=== PATIENT | female | born 1950 | race Hispanic/Latino ===

== ENCOUNTER 2017-05-26 14:46 | Emergency (ER) | payer MEDICARE ==
[2017-05-26] MEDS ORDERED: IOHEXOL IV ONE (23:08)
--- NOTE | 2017-05-26 23:08 | Emergency Department Report ---
ED General Adult HPI - General Chief complaint: Tube Replacement Stated complaint: G-TUBE PULLED Time Seen by Provider: 05/26/17 22:56 Source: family Mode of arrival: Ambulatory Limitations: Language Barrier, Physical Limitation - History of Present Illness Initial comments: Patient is a 66-year-old female past medical history of medical or morbidities and intellectual deficiency G-tube dependent. Who presents with dislodged G- tube. Patient's history is limited due to patient's medical condition. History obtained by patient's stuffed casing tier. Patient pulled her G-tube around 11 AM and came here to get it replaced back. She receives medications and feedings through the G-tube. - Related Data Allergies Allergy/AdvReac Type Severity Reaction Status Date / Time Sulfa (Sulfonamide Allergy Angioedema Verified 05/26/17 15:09 Antibiotics) ED Review of Systems ROS: Stated complaint: G-TUBE PULLED Other details as noted in HPI Comment: Unobtainable due to pts medical conditions ED Past Medical Hx - Past Medical History Previous Medical History?: Yes - Surgical History Past Surgical History?: Yes Additional Surgical History: G TUBE - Social History Smoking Status: Never Smoker Substance Use Type: None ED Physical Exam - General Limitations: Language Barrier, Physical Limitation General appearance: alert, in no apparent distress - Head Head exam: Present: atraumatic, normocephalic - Eye Eye exam: Present: normal appearance - Respiratory Respiratory exam: Present: normal lung sounds bilaterally. Absent: respiratory distress - Cardiovascular Cardiovascular Exam: Present: regular rate, normal rhythm. Absent: systolic murmur, diastolic murmur, rubs, gallop - GI/Abdominal GI/Abdominal exam: Present: soft, other (dislodged g-tube) - Neurological Exam Neurological exam: Present: other (intellectual deficiency nonverbal) - Psychiatric Psychiatric exam: Present: other (nonverbal) - Skin Skin exam: Present: warm, dry, intact, normal color. Absent: rash ED Course Vital Signs 05/26/17 15:10 Temperature 98.5 F Pulse Rate 86 Respiratory 16 Rate Blood Pressure 91/75 O2 Sat by Pulse 100 Oximetry - Feeding Tube Replacement Reason for Replacement: fell out Initial Tube Inserted: greater than 4 weeks Type of Tube: jejunostomy Use of Tube: medications and feeding Insertion Site Prior to Procedure: clean Tube Used for Reinsertion: JAMARCUS Sen[place]alese Tube Size (F): 18 Balloon Size (mls): 10 Verification of Placement: KUB, gastrograffin injection Tube Secured by: tape/dressing Patient Tolerated Procedure: no complications ED Medical Decision Making - Radiology Data Radiology results: report reviewed, image reviewed Gastrotomy tube placement study: Shows G-tube at tip of the stomach contrasts moving into the stomach. - Medical Decision Making Chief medical therapy diagnosis: G-tube dislodgment Differential medical diagnosis: G-tube obstruction, closed stoma I will replace patient's G-tube with an 18 Senegalese G feeding tube. I will also get a G-tube study. Entire procedure well I will send patient back to her care facility contrast injected and confirmed by radiologist. Critical care attestation.: If time is entered above; I have spent that time in minutes in the direct care of this critically ill patient, excluding procedure time. ED Disposition Clinical Impression: Gastrostomy tube dysfunction, Gastrojejunostomy tube dislodgement Disposition: TO HOME OR SELFCARE Is pt being admited?: No Does the pt Need Aspirin: No Condition: Stable Instructions: How to Use and Care for Your PEG Tube (ED) Referrals: EZEQUIEL GOMEZ MD [Primary Care Provider] - 3-5 Days
--- NOTE | 2017-05-27 00:39 | XRay Report ---
FINAL REPORT EXAM: XR G-TUBE STUDY HISTORY: replacement of g tube TECHNIQUE: Supine AP view of the abdomen after injection of radiopaque contrast into a G-tube.. PRIORS: None. FINDINGS: There is contrast in the stomach, duodenum and proximal jejunum. G-tube tip is in the distal stomach. There is no evidence of contrast extravasation. There are multiple gas distended loops of bowel in the left abdomen most likely colon. There is a relatively large amount of stool in the right colon. The bowel gas pattern appears normal. The bones are unremarkable. IMPRESSION: G-tube tip in stomach. Possible constipation or colonic ileus.
[2017-05-27 06:11] VITALS: BP 105/68
== END 2017-05-27 01:20 | disposition home or self-care (01) ==
LOC: ED 14:46
DX: K94.23 Gastrostomy malfunction (principal); Z88.2 Allergy status to sulfonamides
CPT/HCPCS: 74000; Q9963

== ENCOUNTER 2017-09-08 11:24 | Outpatient (CLI) | payer MEDICARE ==
--- NOTE | 2017-09-08 14:19 | XRay Report ---
Right femur: Evaluation for hardware placement. The patient has a hip nail with the shaft component extending into the distal femur. There is new bone formation around the femoral neck with good alignment of the intratrochanteric fracture as well as the hip nail. The femoral component is well-positioned and stabilize distally with a screw. Compared with the operative exam on July 22, 2017 the hip nail and bony alignment appears unchanged.
== END 2017-09-08 11:25 | disposition home or self-care (01) ==
LOC: XRAY 11:24
PROVIDERS: ATTEND Orthopaedic Surgery
DX: S72.141D Displaced intertrochanteric fracture of right femur, subsequent encounter for closed fracture with routine healing (principal); X58.XXXD Exposure to other specified factors, subsequent encounter

== ENCOUNTER 2018-01-09 10:46 | Emergency (ER) | payer MEDICARE ==
[2018-01-09 19:50] VITALS: BP 112/45
--- NOTE | 2018-01-09 20:38 | Emergency Department Report ---
ED Abdominal Pain HPI - General Chief Complaint: Medical Clearance Stated Complaint: G TUBE LEAKING Time Seen by Provider: 01/09/18 20:08 Source: RN/ (KITCHEN HELPER) Mode of arrival: Wheelchair Limitations: Altered Mental Status - History of Present Illness Initial Comments: 67-year-old female with a past medical history of dementia, mental retardation and osteoporosis presents to the hospital with G-tube dysfunction. Patient resides in a senior living. Piece Work Inspector states that the tubing has been leaking since yesterday. Patient does not take anything by mouth intakes all feeds including medications via PEG tube. She has not had anything via PEG today due to leakage. She presents with a G-tube that is 18 Monegasque with tape around the mid tubing at area of leakage. Patient appears to be in no acute distress. Patient is nonverbal and therefore history of present illness obtained from audiology technician. Severity scale (0 -10): 0 - Related Data Home Medications Medication Instructions Recorded Confirmed Last Taken Alendronate Sodium 70 mg FEEDTUBE QWEEK 07/21/17 07/21/17 Unknown Jevity 1.2 Adrian Liquid 1.5 bottle FEEDTUBE TID 07/21/17 07/21/17 Unknown Ketoconazole 2% 1 applicator TP BID 07/21/17 07/21/17 Unknown Loratadine 10 ml PO DAILY 07/21/17 07/21/17 Unknown Nystatin [Nystop Powder] 1 applicator BID 07/21/17 07/21/17 Unknown Silace 10 ml NGTUBE DAILY 07/21/17 07/21/17 Unknown Previous Rx's Medication Instructions Recorded Last Taken Type Acetaminophen [Tylenol Extra 500 mg FEEDTUBE Q6H PRN #30 tablet 07/23/17 Unknown Rx Strength] Levofloxacin [Levaquin TAB] 500 mg PO QDAY #7 day 07/23/17 Unknown Rx Oxycodone HCl/Acetaminophen 1 each PO Q6HR PRN #30 tablet 07/23/17 Unknown Rx [Percocet 10/325 mg] Allergies Allergy/AdvReac Type Severity Reaction Status Date / Time barium sulfate Allergy Unknown Verified 07/21/17 04:03 Sulfa (Sulfonamide Allergy Angioedema Verified 07/20/17 10:44 Antibiotics) ED Review of Systems ROS: Stated complaint: G TUBE LEAKING Other details as noted in HPI Comment: Unobtainable due to pts medical conditions ED Past Medical Hx - Past Medical History Hx Hypertension: No Hx Liver Disease: No Hx Renal Disease: No Hx Dementia: Yes Additional medical history: MR, osteoporosis - Surgical History Additional Surgical History: G TUBE - Social History Smoking Status: Never Smoker Substance Use Type: None - Medications Home Medications: Home Medications Medication Instructions Recorded Confirmed Last Taken Type Alendronate Sodium 70 mg FEEDTUBE QWEEK 07/21/17 07/21/17 Unknown History Jevity 1.2 Adrian Liquid 1.5 bottle FEEDTUBE TID 07/21/17 07/21/17 Unknown History Ketoconazole 2% 1 applicator TP BID 07/21/17 07/21/17 Unknown History Loratadine 10 ml PO DAILY 07/21/17 07/21/17 Unknown History Nystatin [Nystop Powder] 1 applicator BID 07/21/17 07/21/17 Unknown History Silace 10 ml NGTUBE DAILY 07/21/17 07/21/17 Unknown History Acetaminophen [Tylenol Extra 500 mg FEEDTUBE Q6H PRN #30 tablet 07/23/17 Unknown Rx Strength] Levofloxacin [Levaquin TAB] 500 mg PO QDAY #7 day 07/23/17 Unknown Rx Oxycodone HCl/Acetaminophen 1 each PO Q6HR PRN #30 tablet 07/23/17 Unknown Rx [Percocet 10/325 mg] ED Physical Exam - General Limitations: Altered Mental Status - Other Other exam information: General: No limitations, patient is alert in no acute distress Head exam: Atraumatic, normocephalic Eyes exam: Normal appearance, pupils equal reactive to light, extraocular movements intact ENT: Moist mucous membrane, normal oropharynx Neck exam: Normal inspection, full range of motion, no meningismus nontender Respiratory exam: Clear to auscultation bilateral, no wheezes, rales, crackles Cardiovascular: Normal rate and rhythm Abdomen: Soft, nondistended, left upper quadrants and 18 Monegasque G-tube noted with tape around leaking tube site Extremity: Full range of motion normal inspection no deformity Back: Normal Inspection, full range of motion, no tenderness Neurologic: Alert Psychiatric: normal affect, normal mood Skin: Warm, dry, intact ED Course Vital Signs 01/09/18 01/09/18 01/09/18 11:01 19:49 21:41 Temperature 98 F 98.0 F Pulse Rate 64 65 Respiratory 16 18 18 Rate Blood Pressure 128/103 Blood Pressure 112/45 [Right] O2 Sat by Pulse 98 99 100 Oximetry - Consultations Consultation #1: 01/10/18 00:11 case d/w DR Patel general surgeon, in agreement if pt is asymptomatic no further workup needed of incidental findings on axr - Procedure Description Procedures done: 18 Monegasque G-tube placed by myself. Indwelling gastrostomy tube was removed after deflation of balloon. New tube was placed without difficulty. Balloon inflated with 7 mL of normal saline ED Medical Decision Making - Lab Data Result diagrams: 01/09/18 20:42 01/09/18 20:42 Lab Results 01/09/18 01/09/18 Range/Units 20:42 20:42 WBC 8.2 (4.5-11.0) K/mm3 RBC 3.98 (3.65-5.03) M/mm3 Hgb 12.0 (10.1-14.3) gm/dl Hct 37.0 (30.3-42.9) % MCV 93 (79-97) fl MCH 30 (28-32) pg MCHC 33 (30-34) % RDW 16.0 H (13.2-15.2) % Plt Count 294 (140-440) K/mm3 Lymph % (Auto) 34.8 (13.4-35.0) % Haines % (Auto) 7.1 (0.0-7.3) % Eos % (Auto) 0.5 (0.0-4.3) % Baso % (Auto) 0.4 (0.0-1.8) % Lymph # 2.9 (1.2-5.4) K/mm3 Haines # 0.6 (0.0-0.8) K/mm3 Eos # 0.0 (0.0-0.4) K/mm3 Baso # 0.0 (0.0-0.1) K/mm3 Seg Neutrophils % 57.2 (40.0-70.0) % Seg Neutrophils # 4.7 (1.8-7.7) K/mm3 Sodium 144 (137-145) mmol/L Potassium 3.7 (3.6-5.0) mmol/L Chloride 102.6 (98-107) mmol/L Carbon Dioxide 28 (22-30) mmol/L Anion Gap 17 mmol/L BUN 19 H (7-17) mg/dL Creatinine 0.5 L (0.7-1.2) mg/dL Estimated GFR > 60 ml/min BUN/Creatinine Ratio 38 % Glucose 68 (65-100) mg/dL Calcium 9.2 (8.4-10.2) mg/dL - Radiology Data Radiology results: report reviewed G tube study FINDINGS: There is a percutaneous gastrostomy tube. The tube is in the stomach. There contrast in the tube, stomach and small bowel. There is no evidence of obstruction or leakage. There is diffuse gaseous distension of the bowel suggesting generalized ileus. There is no free air. IMPRESSION: G tube appears to be in proper position and intact. - Medical Decision Making Caretakers do not report any vomiting or abdominal discomfort. Patient is asymptomatic and without distress in the ED with normal blood work and vital signs. She was discharged home since G-tube study confirms adequate placement of 18 Monegasque G-tube - Differential Diagnosis G-tube dysfunction Critical Care Time: No Critical care attestation.: If time is entered above; I have spent that time in minutes in the direct care of this critically ill patient, excluding procedure time. ED Disposition Clinical Impression: Gastrostomy tube dysfunction, Mental retardation Disposition: DC-01 TO HOME OR SELFCARE Is pt being admited?: No Condition: Stable Instructions: How to Use and Care for Your PEG Tube (ED) Additional Instructions: Follow-up with your doctor. Return is symptoms worsen. Referrals: PRIMARY CARE, [Primary Care Provider] - 3-5 Days Time of Disposition: 00:14
[2018-01-09] MEDS ORDERED: NACL 0.9% 1000 ML 1,000 ML IV ONE (20:39)
[2018-01-09 21:00] LABS: Basophils % (Auto) 0.4 % (0.0-1.8); Eosinophils % (Auto) 0.5 % (0.0-4.3); Lymphocytes # (Auto) 2.9 K/mm3 (1.2-5.4); Lymphocytes % (Auto) 34.8 % (13.4-35.0); Mean Corpuscular HGB Conc 33 % (30-34); Mean Corpuscular Hemoglobin 30 pg (28-32); Mean Corpuscular Volume 93 fl (79-97); Monocytes # (Auto) 0.6 K/mm3 (0.0-0.8); Monocytes % (Auto) 7.1 % (0.0-7.3); Platelet Count 294 K/mm3 (140-440); Red Blood Count 3.98 M/mm3 (3.65-5.03)
[2018-01-09] MEDS ORDERED: D5/0.45NS 500 ML IV SCH (21:00)
[2018-01-09 21:16] LABS: BUN/Creatinine Ratio 38; Blood Urea Nitrogen 19 mg/dL (7-17); Calcium 9.2 mg/dL (8.4-10.2); Hemolysis Index 0
--- NOTE | 2018-01-09 23:35 | XRay Report ---
FINAL REPORT PROCEDURE: XR G-TUBE STUDY TECHNIQUE: Abdominal radiograph, single supine AP view. HISTORY: s/p g tube replacement COMPARISON: No prior studies are available for comparison. FINDINGS: There is a percutaneous gastrostomy tube. The tube is in the stomach. There contrast in the tube, stomach and small bowel. There is no evidence of obstruction or leakage. There is diffuse gaseous distension of the bowel suggesting generalized ileus. There is no free air. IMPRESSION: G tube appears to be in proper position and intact.
== END 2018-01-10 02:00 | disposition home or self-care (01) ==
LOC: ED 10:46
DX: K94.23 Gastrostomy malfunction (principal); F03.90 Unspecified dementia, unspecified severity, without behavioral disturbance, psychotic disturbance, mood disturbance, and anxiety; Z88.2 Allergy status to sulfonamides; Z88.8 Allergy status to other drugs, medicaments and biological substances
CPT/HCPCS: 36415; 43760; 74018; 80048; 85025; 99284; Q9967

== ENCOUNTER 2019-02-17 10:45 | Emergency (ER) | payer MEDICARE ==
--- NOTE | 2019-02-17 11:55 | Emergency Department Report ---
ED General Adult HPI - General Chief complaint: Medical Clearance Stated complaint: MEDICAL CLEARANCE Time Seen by Provider: 02/17/19 11:51 Source: family Mode of arrival: Wheelchair Limitations: Physical Limitation - History of Present Illness Initial comments: Yeison is a 68-year-old female with history of nothing by mouth status. Patient ate an old chicken nugget that was found in her caregiver's car. Caregiver was able to retrieve the chicken nugget. Caregiver comes to the ER for medical clearance to return back to alf. No recent illness otherwise. -: Sudden, This afternoon Consistency: now resolved Improves with: none Worsens with: none Associated Symptoms: confusion - Related Data Home Medications Medication Instructions Recorded Confirmed Last Taken Alendronate Sodium 70 mg FEEDTUBE QWEEK 07/21/17 07/21/17 Unknown Jevity 1.2 Adrian Liquid 1.5 bottle FEEDTUBE TID 07/21/17 07/21/17 Unknown Ketoconazole 2% 1 applicator TP BID 07/21/17 07/21/17 Unknown Loratadine 10 ml PO DAILY 07/21/17 07/21/17 Unknown Nystatin [Nystop Powder] 1 applicator BID 07/21/17 07/21/17 Unknown Silace 10 ml NGTUBE DAILY 07/21/17 07/21/17 Unknown Previous Rx's Medication Instructions Recorded Last Taken Type Acetaminophen [Tylenol Extra 500 mg FEEDTUBE Q6H PRN #30 tablet 07/23/17 Unknown Rx Strength] Oxycodone HCl/Acetaminophen 1 each PO Q6HR PRN #30 tablet 07/23/17 Unknown Rx [Percocet 10/325 mg] levoFLOXacin [Levaquin TAB] 500 mg PO QDAY #7 day 07/23/17 Unknown Rx Azithromycin [Zithromax Z-MANJIT] 250 mg PO DAILY 1 Days tab 01/11/19 Unknown Rx guaiFENesin [Robitussin] 5 ml PO TID PRN #100 ml 01/11/19 Unknown Rx Allergies Allergy/AdvReac Type Severity Reaction Status Date / Time barium sulfate Allergy Unknown Verified 01/11/19 08:43 Sulfa (Sulfonamide Allergy Angioedema Verified 01/11/19 08:43 Antibiotics) ED Review of Systems ROS: Stated complaint: MEDICAL CLEARANCE Other details as noted in HPI Comment: Unobtainable due to pts medical conditions (patient is nonverbal) ED Past Medical Hx - Past Medical History Hx Hypertension: No Hx Liver Disease: No Hx Renal Disease: No Hx Dementia: Yes Additional medical history: MR, osteoporosis, Intellectual disability - Surgical History Additional Surgical History: G TUBE - Social History Smoking Status: Unknown if ever smoked Substance Use Type: None - Medications Home Medications: Home Medications Medication Instructions Recorded Confirmed Last Taken Type Alendronate Sodium 70 mg FEEDTUBE QWEEK 07/21/17 07/21/17 Unknown History Jevity 1.2 Adrian Liquid 1.5 bottle FEEDTUBE TID 07/21/17 07/21/17 Unknown History Ketoconazole 2% 1 applicator TP BID 07/21/17 07/21/17 Unknown History Loratadine 10 ml PO DAILY 07/21/17 07/21/17 Unknown History Nystatin [Nystop Powder] 1 applicator BID 07/21/17 07/21/17 Unknown History Silace 10 ml NGTUBE DAILY 07/21/17 07/21/17 Unknown History Acetaminophen [Tylenol Extra 500 mg FEEDTUBE Q6H PRN #30 tablet 07/23/17 Unknown Rx Strength] Oxycodone HCl/Acetaminophen 1 each PO Q6HR PRN #30 tablet 07/23/17 Unknown Rx [Percocet 10/325 mg] levoFLOXacin [Levaquin TAB] 500 mg PO QDAY #7 day 07/23/17 Unknown Rx Azithromycin [Zithromax Z-MANJIT] 250 mg PO DAILY 1 Days tab 01/11/19 Unknown Rx guaiFENesin [Robitussin] 5 ml PO TID PRN #100 ml 01/11/19 Unknown Rx ED Physical Exam - General Limitations: Language Barrier General appearance: alert, in no apparent distress - Head Head exam: Present: atraumatic, normocephalic - Eye Eye exam: Present: normal appearance - ENT ENT exam: Present: mucous membranes moist - Neck Neck exam: Present: normal inspection, full ROM - Respiratory Respiratory exam: Present: normal lung sounds bilaterally. Absent: respiratory distress, wheezes, rales, rhonchi - Cardiovascular Cardiovascular Exam: Present: regular rate, normal rhythm, normal heart sounds. Absent: systolic murmur, diastolic murmur, rubs, gallop - GI/Abdominal GI/Abdominal exam: Present: soft, normal bowel sounds - Extremities Exam Extremities exam: Present: normal inspection - Neurological Exam Neurological exam: Present: alert - Psychiatric Psychiatric exam: Present: flat affect - Skin Skin exam: Present: warm, dry, intact, normal color. Absent: rash ED Medical Decision Making - Medical Decision Making Opal is nothing by mouth status. Caregiver was able to retrieve chicken nugget. No indication of aspiration. I do not anticipate severe complication even a small particle was swallowed. Discharged home with reassurance and return precautions Critical care attestation.: If time is entered above; I have spent that time in minutes in the direct care of this critically ill patient, excluding procedure time. ED Disposition Clinical Impression: Accidental ingestion of substance Disposition: DC-01 TO HOME OR SELFCARE Is pt being admited?: No Does the pt Need Aspirin: No Condition: Stable Additional Instructions: Opal does not have any indication of aspiration. No complications are anticipated.
== END 2019-02-17 12:15 | disposition home or self-care (01) ==
LOC: ED 10:45
DX: T65.91XA Toxic effect of unspecified substance, accidental (unintentional), initial encounter (principal); Z88.2 Allergy status to sulfonamides; Z79.899 Other long term (current) drug therapy; Y92.89 Other specified places as the place of occurrence of the external cause
CPT/HCPCS: 99281

== ENCOUNTER 2019-03-30 09:51 | Outpatient (CLI) | payer MEDICARE ==
--- NOTE | 2019-03-30 11:10 | Vascular Lab Report ---
DUPLEX DOPPLER LOWER EXTREMITY ARTERIAL, BILATERAL INDICATION: (L81.9)DISORDER OF PIGMENTATION/R20.9 EXTREMITIES FOR COLDNESS OF. Lower extremity discoloration. TECHNIQUE: Arterial duplex examination of both lower extremities performed using B-mode, color flow and spectral Doppler assessment. FINDINGS: RIGHT: Common Femoral Artery: PSV 132 cm/sec. Triphasic waveform. Proximal SFA: PSV 64 cm/sec. Triphasic waveform. Mid SFA: PSV 62 cm/sec. Triphasic waveform. Distal SFA: PSV 50 cm/sec. Triphasic waveform. Popliteal artery: PSV 61 cm/sec. Triphasic waveform. Posterior tibial artery: PSV 43 cm/sec. Triphasic waveform. Anterior tibial artery: PSV 28 cm/sec. Triphasic waveform. LEFT: Common Femoral Artery: PSV 99 cm/sec. Triphasic waveform. Proximal SFA: PSV 50 cm/sec. Triphasic waveform. Mid SFA: PSV 47 cm/sec. Triphasic waveform. Distal SFA: PSV 52 cm/sec. Triphasic waveform. Popliteal artery: PSV 76 cm/sec. Triphasic waveform. Posterior tibial artery: PSV 45 cm/sec. Triphasic waveform. Anterior tibial artery: PSV 24 cm/sec. Triphasic waveform. IMPRESSION: No significant lower extremity peripheral artery disease. Doppler Waveform: * Triphasic is normal. * Biphasic is abnormal if clear transition from triphasic signal along vascular tree. * Monophasic is abnormal. Signer Name: Vince Malone Jr, MD Signed: 03/30/2019 11:05 AM Workstation Name: [id number]
== END 2019-03-30 09:52 | disposition home or self-care (01) ==
LOC: VAS 09:51
PROVIDERS: ATTEND Internal Medicine
DX: L81.9 Disorder of pigmentation, unspecified (principal); R20.9 Unspecified disturbances of skin sensation
CPT/HCPCS: 93925

== ENCOUNTER 2019-04-20 06:28 | Emergency (ER) | payer MEDICARE ==
--- NOTE | 2019-04-20 07:48 | Emergency Department Report ---
ED General Adult HPI - General Chief complaint: Tube Replacement Stated complaint: FEEDING TUBE CAME OUT Time Seen by Provider: 04/20/19 06:48 Source: EMS Mode of arrival: Stretcher Limitations: Physical Limitation - History of Present Illness Initial comments: Patient to the emergency department from a local facility for replacement of feeding tube. Patient is nonverbal and has nothing to add to the history. -: unknown Improves with: none Worsens with: none Associated Symptoms: denies other symptoms Treatments Prior to Arrival: none - Related Data Home Medications Medication Instructions Recorded Confirmed Last Taken Alendronate Sodium 70 mg FEEDTUBE QWEEK 07/21/17 07/21/17 Unknown Jevity 1.2 Adrian Liquid 1.5 bottle FEEDTUBE TID 07/21/17 07/21/17 Unknown Ketoconazole 2% 1 applicator TP BID 07/21/17 07/21/17 Unknown Loratadine 10 ml PO DAILY 07/21/17 07/21/17 Unknown Nystatin [Nystop Powder] 1 applicator BID 07/21/17 07/21/17 Unknown Silace 10 ml NGTUBE DAILY 07/21/17 07/21/17 Unknown Previous Rx's Medication Instructions Recorded Last Taken Type Acetaminophen [Tylenol Extra 500 mg FEEDTUBE Q6H PRN #30 tablet 07/23/17 Unknown Rx Strength] Oxycodone HCl/Acetaminophen 1 each PO Q6HR PRN #30 tablet 07/23/17 Unknown Rx [Percocet 10/325 mg] levoFLOXacin [Levaquin TAB] 500 mg PO QDAY #7 day 07/23/17 Unknown Rx Azithromycin [Zithromax Z-MANJIT] 250 mg PO DAILY 1 Days tab 01/11/19 Unknown Rx guaiFENesin [Robitussin] 5 ml PO TID PRN #100 ml 01/11/19 Unknown Rx Allergies Allergy/AdvReac Type Severity Reaction Status Date / Time barium sulfate Allergy Unknown Verified 01/11/19 08:43 Sulfa (Sulfonamide Allergy Angioedema Verified 01/11/19 08:43 Antibiotics) ED Review of Systems ROS: Stated complaint: FEEDING TUBE CAME OUT Other details as noted in HPI Comment: not able to obtain due to the patient's baseline mental status ED Past Medical Hx - Past Medical History Previous Medical History?: Yes Hx Hypertension: No Hx Liver Disease: No Hx Renal Disease: No Hx Dementia: Yes Additional medical history: MR, osteoporosis, Intellectual disability - Surgical History Past Surgical History?: Yes Additional Surgical History: G TUBE - Social History Smoking Status: Unknown if ever smoked - Medications Home Medications: Home Medications Medication Instructions Recorded Confirmed Last Taken Type Alendronate Sodium 70 mg FEEDTUBE QWEEK 07/21/17 07/21/17 Unknown History Jevity 1.2 Adrian Liquid 1.5 bottle FEEDTUBE TID 07/21/17 07/21/17 Unknown History Ketoconazole 2% 1 applicator TP BID 07/21/17 07/21/17 Unknown History Loratadine 10 ml PO DAILY 07/21/17 07/21/17 Unknown History Nystatin [Nystop Powder] 1 applicator BID 07/21/17 07/21/17 Unknown History Silace 10 ml NGTUBE DAILY 07/21/17 07/21/17 Unknown History Acetaminophen [Tylenol Extra 500 mg FEEDTUBE Q6H PRN #30 tablet 07/23/17 Unknown Rx Strength] Oxycodone HCl/Acetaminophen 1 each PO Q6HR PRN #30 tablet 07/23/17 Unknown Rx [Percocet 10/325 mg] levoFLOXacin [Levaquin TAB] 500 mg PO QDAY #7 day 07/23/17 Unknown Rx Azithromycin [Zithromax Z-MANJIT] 250 mg PO DAILY 1 Days tab 01/11/19 Unknown Rx guaiFENesin [Robitussin] 5 ml PO TID PRN #100 ml 01/11/19 Unknown Rx ED Physical Exam - General Limitations: Physical Limitation General appearance: alert, in no apparent distress - Head Head exam: Present: atraumatic, normocephalic - Eye Eye exam: Present: normal appearance - ENT ENT exam: Present: mucous membranes moist - Neck Neck exam: Present: normal inspection - Respiratory Respiratory exam: Present: normal lung sounds bilaterally. Absent: respiratory distress - Cardiovascular Cardiovascular Exam: Present: regular rate, normal rhythm, normal heart sounds - GI/Abdominal GI/Abdominal exam: Present: soft, other (differential ostomy present without indwelling tube). Absent: distended, tenderness - Extremities Exam Extremities exam: Present: normal inspection - Neurological Exam Neurological exam: Present: alert, other (not able to completely assess due to the patient's baseline mental status). Absent: motor sensory deficit - Psychiatric Psychiatric exam: Present: other (not able to completely assess due to the patient's baseline mental status) - Skin Skin exam: Present: warm, dry, normal color. Absent: intact ED Course Vital Signs 04/20/19 04/20/19 06:30 09:01 Temperature 98.1 F 97.6 F Pulse Rate 69 57 L Respiratory 18 18 Rate Blood Pressure 122/65 Blood Pressure 122/65 123/46 [Left] O2 Sat by Pulse 99 99 Oximetry - Feeding Tube Replacement Reason for Replacement: fell out Type of Tube: gastrostomy Use of Tube: other (unknown) Insertion Site Prior to Procedure: clean Tube Used for Reinsertion: JAMARCUS, other (18 yakut) Yakut Tube Size (F): 18 Balloon Size (mls): 10 Verification of Placement: auscultation, gastrograffin injection Tube Secured by: tape/dressing, G-tube attachment device, other (abdominal binder ) Complications: other (none) ED Medical Decision Making - Radiology Data Radiology results: report reviewed Critical care attestation.: If time is entered above; I have spent that time in minutes in the direct care of this critically ill patient, excluding procedure time. ED Disposition Clinical Impression: Complication of feeding tube, Visit for feeding tube placement Disposition: OP ADMIT IP TO THIS HOSP Is pt being admited?: No Does the pt Need Aspirin: No Condition: Stable Instructions: Tube Feeding (ED), How to Use and Care for Your PEG Tube (ED) Additional Instructions: return if worse Referrals: BEULAH CUEVAS MD [Primary Care Provider] - 3-5 Days [facility], [Provider Group] - 3-5 Days [facility] [Provider Group] - 3-5 Days Time of Disposition: 10:40
--- NOTE | 2019-04-20 10:12 | XRay Report ---
G-TUBE STUDY HISTORY: Confirmation of G-tube placement. FINDINGS: Optical Effects Layout Person film of the abdomen is presented with a PEG tube overlying the left upper quadrant. T here is a large amount of gas and stool throughout the GI system. A second image was obtained after i njection of oral contrast through the tube which confirms the distal tip terminates in the stomach. P roximal small bowel loops are opacified with contrast. No obstruction. IMPRESSION: The G-tube terminates in the stomach. Signer Name: Vince Malone Jr, MD Signed: 04/20/2019 10:08 AM Workstation Name: [id number]
[2019-04-20 12:57] VITALS: BP 123/53
== END 2019-04-20 14:14 | disposition home or self-care (01) ==
LOC: ED 06:28
DX: K94.20 Gastrostomy complication, unspecified (principal); Z88.8 Allergy status to other drugs, medicaments and biological substances; Z88.2 Allergy status to sulfonamides; Z79.899 Other long term (current) drug therapy
CPT/HCPCS: 43762; 74018; 99283; Q9967

== ENCOUNTER 2019-08-03 06:56 | Emergency (ER) | payer MEDICARE ==
--- NOTE | 2019-08-03 07:34 | Emergency Department Report ---
ED General Adult HPI - General Chief complaint: Altered Mental Status Stated complaint: GTUBE CLOGGED Time Seen by Provider: 08/03/19 07:30 Source: EMS Mode of arrival: Stretcher Limitations: Language Barrier, Altered Mental Status - History of Present Illness Initial comments: 2017 Hospitalization: Hospitalization Condition: Stable Hospital course: Patient is a 67-year-old woman from a senior care with a history of severe mental retardation, advanced dementia and PEG tube usage who presents with a fall resulting in intertrochanteric fracture right femur. Patient was walking prior to the fall. Her next of kin, only sibling (no parents or kids) is Amparo her home phone number is [phone] and a nephew, Keith, cell phone number is [phone]. Patient's niece Itzel also at bedside her cell phone number is [phone] and she is reliable historian. -Acute intertrochanteric fracture right femur: going for surgery, don't know timeframe, Ortho, Dr. Castillo is following. -Escherichia coli UTI : Send home with Levaquin or Cipro -Advanced dementia: Consent from next of kin -DVT prophylaxis: Patient received subcutaneous Lovenox Severity scale (0 -10): 0 - Related Data Home Medications Medication Instructions Recorded Confirmed Last Taken Alendronate Sodium 70 mg FEEDTUBE QWEEK 07/21/17 07/21/17 Unknown Jevity 1.2 Adrian Liquid 1.5 bottle FEEDTUBE TID 07/21/17 07/21/17 Unknown Ketoconazole 2% 1 applicator TP BID 07/21/17 07/21/17 Unknown Loratadine 10 ml PO DAILY 07/21/17 07/21/17 Unknown Nystatin [Nystop Powder] 1 applicator BID 07/21/17 07/21/17 Unknown Silace 10 ml NGTUBE DAILY 07/21/17 07/21/17 Unknown Previous Rx's Medication Instructions Recorded Last Taken Type Acetaminophen [Tylenol Extra 500 mg FEEDTUBE Q6H PRN #30 tablet 07/23/17 Unknown Rx Strength] Oxycodone HCl/Acetaminophen 1 each PO Q6HR PRN #30 tablet 07/23/17 Unknown Rx [Percocet 10/325 mg] levoFLOXacin [Levaquin TAB] 500 mg PO QDAY #7 day 07/23/17 Unknown Rx Azithromycin [Zithromax Z-MANJIT] 250 mg PO DAILY 1 Days tab 01/11/19 Unknown Rx guaiFENesin [Robitussin] 5 ml PO TID PRN #100 ml 01/11/19 Unknown Rx Allergies Allergy/AdvReac Type Severity Reaction Status Date / Time barium sulfate Allergy Unknown Verified 01/11/19 08:43 Sulfa (Sulfonamide Allergy Angioedema Verified 01/11/19 08:43 Antibiotics) ED Review of Systems ROS: Stated complaint: GTUBE CLOGGED Other details as noted in HPI ED Past Medical Hx - Past Medical History Previous Medical History?: Yes Hx Hypertension: No Hx Liver Disease: No Hx Renal Disease: No Hx Dementia: Yes Additional medical history: MR, osteoporosis, Intellectual disability, Non- verbal - Surgical History Past Surgical History?: Yes Additional Surgical History: G TUBE - Social History Smoking Status: Unknown if ever smoked Substance Use Type: None - Medications Home Medications: Home Medications Medication Instructions Recorded Confirmed Last Taken Type Alendronate Sodium 70 mg FEEDTUBE QWEEK 07/21/17 07/21/17 Unknown History Jevity 1.2 Adrian Liquid 1.5 bottle FEEDTUBE TID 07/21/17 07/21/17 Unknown History Ketoconazole 2% 1 applicator TP BID 07/21/17 07/21/17 Unknown History Loratadine 10 ml PO DAILY 07/21/17 07/21/17 Unknown History Nystatin [Nystop Powder] 1 applicator BID 07/21/17 07/21/17 Unknown History Silace 10 ml NGTUBE DAILY 07/21/17 07/21/17 Unknown History Acetaminophen [Tylenol Extra 500 mg FEEDTUBE Q6H PRN #30 tablet 07/23/17 Unknown Rx Strength] Oxycodone HCl/Acetaminophen 1 each PO Q6HR PRN #30 tablet 07/23/17 Unknown Rx [Percocet 10/325 mg] levoFLOXacin [Levaquin TAB] 500 mg PO QDAY #7 day 07/23/17 Unknown Rx Azithromycin [Zithromax Z-MANJIT] 250 mg PO DAILY 1 Days tab 01/11/19 Unknown Rx guaiFENesin [Robitussin] 5 ml PO TID PRN #100 ml 01/11/19 Unknown Rx ED Physical Exam - General Limitations: Language Barrier, Altered Mental Status ED Course Vital Signs 08/03/19 08/03/19 08/03/19 07:26 08:18 10:49 Temperature 96.6 F L 98.3 F Pulse Rate 58 L 67 Respiratory 12 10 L 14 Rate Blood Pressure 123/34 130/59 [Left] O2 Sat by Pulse 100 100 99 Oximetry - Reevaluation(s) Reevaluation #1: I irrigated the patient's G-tube. It was not clogged. I reviewed the patient's prior records. She has a history of "severe mental retardation". I think the patient's altered mental status is likely attributable to this as her workup is essentially unremarkable. She is appropriate for return to the assisted. 08/03/19 11:05 ED Medical Decision Making - Lab Data Result diagrams: 08/03/19 08:13 08/03/19 08:13 Laboratory Results - last 24 hr 08/03/19 08/03/19 08/03/19 08:13 08:13 08:13 WBC 8.9 RBC 4.12 Hgb 12.9 Hct 38.3 MCV 93 MCH 31 MCHC 34 RDW 13.9 Plt Count 332 Lymph % (Auto) 15.7 Mckean % (Auto) 7.2 Eos % (Auto) 0.2 Baso % (Auto) 0.2 Lymph # 1.4 Mckean # 0.6 Eos # 0.0 Baso # 0.0 Seg Neutrophils % 76.7 H Seg Neutrophils # 6.8 Sodium 140 Potassium 4.3 Chloride 99.7 Carbon Dioxide 24 Anion Gap 21 BUN 21 H Creatinine 0.5 L Estimated GFR > 60 BUN/Creatinine Ratio 42 Glucose 90 Lactic Acid 1.20 Calcium 9.6 Magnesium 2.40 H Total Bilirubin 0.30 Direct Bilirubin < 0.2 Indirect Bilirubin 0.1 AST 40 ALT 22 Alkaline Phosphatase 106 Ammonia Total Protein 8.3 H Albumin 4.5 Albumin/Globulin Ratio 1.2 08/03/19 08:13 WBC RBC Hgb Hct MCV MCH MCHC RDW Plt Count Lymph % (Auto) Mckean % (Auto) Eos % (Auto) Baso % (Auto) Lymph # Mckean # Eos # Baso # Seg Neutrophils % Seg Neutrophils # Sodium Potassium Chloride Carbon Dioxide Anion Gap BUN Creatinine Estimated GFR BUN/Creatinine Ratio Glucose Lactic Acid Calcium Magnesium Total Bilirubin Direct Bilirubin Indirect Bilirubin AST ALT Alkaline Phosphatase Ammonia 21.0 L Total Protein Albumin Albumin/Globulin Ratio Critical care attestation.: If time is entered above; I have spent that time in minutes in the direct care of this critically ill patient, excluding procedure time. ED Disposition Clinical Impression: Altered mental status Qualifiers: Altered mental status type: transient alteration of awareness Qualified Code(s): R40.4 - Transient alteration of awareness Disposition: DC-01 TO HOME OR SELFCARE Is pt being admited?: No Does the pt Need Aspirin: No Condition: Stable Instructions: Percutaneous Endoscopic Gastrostomy Insertion (GEN), How to Use and Care for Your PEG Tube (ED) Additional Instructions: The patient's laboratory workup and CT scan showed no acute abnormality. The G- tube is working normally. It may be used. Follow-up with attending physician at assisted. Return to the emergency department any acute change or problem. Referrals: PRIMARY CARE, [Primary Care Provider] - 2-3 Days Time of Disposition: 11:08
[2019-08-03] MEDS ORDERED: SODIUM CHLORIDE IRRI 500 ML 500 ML IR ONE (07:43)
[2019-08-03] MEDS ORDERED: SODIUM CHLORIDE 0.9% 1000 ML 1,000 ML IV ONE ×2 (07:49→07:50)
[2019-08-03 08:27] LABS: Basophils % (Auto) 0.2 % (0.0-1.8); Eosinophils % (Auto) 0.2 % (0.0-4.3); Hematocrit 38.3 % (30.3-42.9); Hemoglobin 12.9 gm/dl (10.1-14.3); Lymphocytes # (Auto) 1.4 K/mm3 (1.2-5.4); Lymphocytes % (Auto) 15.7 % (13.4-35.0); Mean Corpuscular HGB Conc 34 % (30-34); Mean Corpuscular Volume 93 fl (79-97); Monocytes # (Auto) 0.6 K/mm3 (0.0-0.8); Monocytes % (Auto) 7.2 % (0.0-7.3); Platelet Count 332 K/mm3 (140-440); Red Blood Count 4.12 M/mm3 (3.65-5.03); Red Cell Distribution Width 13.9 % (13.2-15.2)
[2019-08-03 08:46] LABS: Alanine Aminotransferase 22 units/L (7-56); Albumin 4.5 g/dL (3.9-5); BUN/Creatinine Ratio 42; Blood Urea Nitrogen 21 mg/dL (7-17); Calcium 9.6 mg/dL (8.4-10.2); Hemolysis Index 19
[2019-08-03 09:00] LABS: Bilirubin,Direct < 0.2 mg/dL (0-0.2)
[2019-08-03 09:55] LABS: Bilirubin,Urine NEG (Negative); Blood,Urine NEG (Negative); Color,Urine Yellow (Yellow)
--- NOTE | 2019-08-03 10:33 | Cat Scan Report ---
CT HEAD WITHOUT CONTRAST INDICATION / CLINICAL INFORMATION: Altered mental status. TECHNIQUE: Axial imaging performed from the skull apex through the skull base without the use of cont rast. Sagittal and coronal reformatted images. All CT scans at this location are performed using CT dose reduction for ALARA by means of automated exposure control. COMPARISON: None available. FINDINGS: CEREBRAL PARENCHYMA: No significant abnormality. No acute territorial infarct. HEMORRHAGE: None. EXTRA-AXIAL SPACES: Normal in size and morphology for the patient's age. VENTRICULAR SYSTEM: Normal in size and morphology for the patient's age. MIDLINE SHIFT OR HERNIATION: None. CEREBELLUM / BRAINSTEM: No significant abnormality. CALVARIUM: No significant abnormality. ORBITS: Normal as visualized. PARANASAL SINUSES / MASTOID AIR CELLS: Normal as visualized. SOFT TISSUES of HEAD: No significant abnormality. ADDITIONAL FINDINGS: None. IMPRESSION: No acute intracranial abnormality. Normal CT brain. Signer Name: Vince Malone Jr, MD Signed: 08/03/2019 10:28 AM Workstation Name: [id number]
[2019-08-03 16:47] VITALS: BP 101/55
== END 2019-08-03 17:29 | disposition home or self-care (01) ==
LOC: ED 06:56
DX: R41.82 Altered mental status, unspecified (principal); F03.90 Unspecified dementia, unspecified severity, without behavioral disturbance, psychotic disturbance, mood disturbance, and anxiety; M81.0 Age-related osteoporosis without current pathological fracture; Z98.890 Other specified postprocedural states; Z79.899 Other long term (current) drug therapy; Z88.2 Allergy status to sulfonamides
CPT/HCPCS: 36415; 70450; 80048; 80076; 81001; 82140; 83735; 85025; 87086; 96360; 96361; 99284; J7030

== ENCOUNTER 2021-12-26 10:37 | Outpatient (CLI) | payer MEDICARE ==
[2021-12-26] MEDS ORDERED: LIDOCAINE (4%) 40 MG/ML TOPICAL SOLN 50 ML BOTTLE TP ONE (10:52)
[2021-12-26] MEDS ORDERED: SODIUM HYPOCHLORITE, DAKIN'S FULL STRENGTH (0.5%) 473 ML TOPICAL SOLN TP ONE (12:06)
== END 2021-12-26 10:38 | disposition home or self-care (01) ==
LOC: WOUND 10:37
PROVIDERS: ATTEND Surgery
DX: L89.214 Pressure ulcer of right hip, stage 4 (principal); L97.114 Non-pressure chronic ulcer of right thigh with necrosis of bone; M81.0 Age-related osteoporosis without current pathological fracture; H26.8 Other specified cataract; F72 Severe intellectual disabilities; Z79.899 Other long term (current) drug therapy

== ENCOUNTER 2022-01-02 14:25 | Outpatient (CLI) | payer MEDICARE ==
[2022-01-02] MEDS ORDERED: LIDOCAINE (4%) 40 MG/ML TOPICAL SOLN 50 ML BOTTLE TP ONE (14:47)
== END 2022-01-02 14:26 | disposition home or self-care (01) ==
LOC: WOUND 14:25
PROVIDERS: ATTEND Surgery
DX: L89.214 Pressure ulcer of right hip, stage 4 (principal); L97.114 Non-pressure chronic ulcer of right thigh with necrosis of bone; R13.10 Dysphagia, unspecified; H26.8 Other specified cataract; M81.0 Age-related osteoporosis without current pathological fracture; F72 Severe intellectual disabilities; Z79.899 Other long term (current) drug therapy

== ENCOUNTER 2022-01-09 13:42 | Outpatient (CLI) | payer MEDICARE ==
[2022-01-09] MEDS ORDERED: LIDOCAINE (4%) 40 MG/ML TOPICAL SOLN 50 ML BOTTLE TP ONE (14:16)
== END 2022-01-09 13:43 | disposition home or self-care (01) ==
LOC: WOUND 13:42
PROVIDERS: ATTEND Surgery
DX: L89.214 Pressure ulcer of right hip, stage 4 (principal); L97.114 Non-pressure chronic ulcer of right thigh with necrosis of bone; R13.10 Dysphagia, unspecified; H26.8 Other specified cataract; M81.0 Age-related osteoporosis without current pathological fracture; F72 Severe intellectual disabilities; Z79.899 Other long term (current) drug therapy

== ENCOUNTER 2022-01-16 14:53 | Outpatient (CLI) | payer MEDICARE ==
[2022-01-16] MEDS ORDERED: LIDOCAINE (4%) 40 MG/ML TOPICAL SOLN 50 ML BOTTLE TP SCH (15:30)
== END 2022-01-16 14:54 | disposition home or self-care (01) ==
LOC: WOUND 14:53
PROVIDERS: ATTEND Surgery
DX: L89.214 Pressure ulcer of right hip, stage 4 (principal); L97.114 Non-pressure chronic ulcer of right thigh with necrosis of bone; H26.8 Other specified cataract; R13.10 Dysphagia, unspecified; M81.0 Age-related osteoporosis without current pathological fracture; F72 Severe intellectual disabilities; Z79.899 Other long term (current) drug therapy
CPT/HCPCS: 99212; G0463

== ENCOUNTER 2022-01-23 13:38 | Outpatient (CLI) | payer MEDICARE ==
[2022-01-23] MEDS ORDERED: LIDOCAINE (4%) 40 MG/ML TOPICAL SOLN 50 ML BOTTLE TP ONE (15:39)
== END 2022-01-23 13:39 | disposition home or self-care (01) ==
LOC: WOUND 13:38
PROVIDERS: ATTEND Surgery
DX: L89.214 Pressure ulcer of right hip, stage 4 (principal); L97.114 Non-pressure chronic ulcer of right thigh with necrosis of bone; H26.8 Other specified cataract; R13.10 Dysphagia, unspecified; M81.0 Age-related osteoporosis without current pathological fracture; F72 Severe intellectual disabilities; Z79.899 Other long term (current) drug therapy

== ENCOUNTER 2022-01-30 13:52 | Outpatient (CLI) | payer MEDICARE ==
[2022-01-30] MEDS ORDERED: LIDOCAINE (4%) 40 MG/ML TOPICAL SOLN 50 ML BOTTLE TP ONE (13:54)
== END 2022-01-30 13:53 | disposition home or self-care (01) ==
LOC: WOUND 13:52
PROVIDERS: ATTEND Surgery
DX: L89.214 Pressure ulcer of right hip, stage 4 (principal); L97.114 Non-pressure chronic ulcer of right thigh with necrosis of bone; H26.8 Other specified cataract; R13.10 Dysphagia, unspecified; M81.0 Age-related osteoporosis without current pathological fracture; F72 Severe intellectual disabilities; Z79.899 Other long term (current) drug therapy

== ENCOUNTER 2022-02-06 12:11 | Outpatient (CLI) | payer MEDICARE ==
[2022-02-06] MEDS ORDERED: LIDOCAINE (4%) 40 MG/ML TOPICAL SOLN 50 ML BOTTLE TP SCH (12:30)
== END 2022-02-06 12:12 | disposition home or self-care (01) ==
LOC: WOUND 12:11
PROVIDERS: ATTEND Surgery
DX: L89.214 Pressure ulcer of right hip, stage 4 (principal); L97.114 Non-pressure chronic ulcer of right thigh with necrosis of bone; H26.8 Other specified cataract; R13.10 Dysphagia, unspecified; M81.0 Age-related osteoporosis without current pathological fracture; F72 Severe intellectual disabilities; Z79.899 Other long term (current) drug therapy

== ENCOUNTER 2022-02-12 13:33 | Outpatient (CLI) | payer MEDICARE ==
[2022-02-12 15:05] LABS: Blood Urea Nitrogen 21 mg/dL (7-17)
--- NOTE | 2022-02-12 16:47 | Magnetic Resonance Report ---
MR LE joint RT wo con INDICATION: L97.114 CHRONIC ULCER RT THIGH/ NECROSIS, RT HIP ULCER PATIENT VERY HARD STICK, VERY THIN SKIN AND E ASY TO BRUISE. TECHNIQUE: Multiplanar, multisequence MR images were obtained. COMPARISON: Right hip x-ray 09/08/2017 FINDINGS: The right femoral neck screw and intramedullary nail have been removed. There is osteonecrosis involv ing the right femoral head with mild degenerative arthrosis of right hip. No hip effusion. There is a large soft tissue wound/ulcer along the lateral aspect of hip at level of greater trochant er with abnormal signal intensity within the greater trochanter and lateral cortical destruction marilee acteristic for osteomyelitis. Moderate overlying subcutaneous soft tissue edema is seen. There is no soft tissue fluid collection/abscess. IMPRESSION: 1. Osteomyelitis involving the right greater trochanter with large overlying soft tissue ulcer/wound. 2. Previous hardware removal of right hip with old healed intertrochanteric fracture deformity. 3. Osteonecrosis right femoral head with mild degenerative arthrosis right hip. Signer Name: Kirill Lara MD Signed: 02/12/2022 4:43 PM Workstation Name: [id number]
== END 2022-02-12 13:34 | disposition home or self-care (01) ==
LOC: MRI 13:33
PROVIDERS: ATTEND Surgery
DX: M16.11 Unilateral primary osteoarthritis, right hip (principal); M86.8X6 Other osteomyelitis, lower leg; M87.88 Other osteonecrosis, other site; L97.114 Non-pressure chronic ulcer of right thigh with necrosis of bone
CPT/HCPCS: 36415; 73721; 82565; 84520

== ENCOUNTER 2022-02-20 14:31 | Outpatient (CLI) | payer MEDICARE | END 2022-02-20 14:32 | disposition home or self-care (01) | LOC: WOUND 14:31 | PROVIDERS: ATTEND Surgery | DX: L89.214 Pressure ulcer of right hip, stage 4 (principal); L97.114 Non-pressure chronic ulcer of right thigh with necrosis of bone; H26.8 Other specified cataract; R13.10 Dysphagia, unspecified; M81.0 Age-related osteoporosis without current pathological fracture; F72 Severe intellectual disabilities; Z79.899 Other long term (current) drug therapy | CPT/HCPCS: 99213; G0463 ==

== ENCOUNTER 2022-02-27 10:07 | Outpatient (CLI) | payer MEDICARE ==
[2022-02-27] MEDS ORDERED: LIDOCAINE (4%) 40 MG/ML TOPICAL SOLN 50 ML BOTTLE TP ONE (10:09)
== END 2022-02-27 10:08 | disposition home or self-care (01) ==
LOC: WOUND 10:07
PROVIDERS: ATTEND Surgery
DX: L89.214 Pressure ulcer of right hip, stage 4 (principal); L97.114 Non-pressure chronic ulcer of right thigh with necrosis of bone; M86.671 Other chronic osteomyelitis, right ankle and foot; H26.8 Other specified cataract; R13.10 Dysphagia, unspecified; M81.0 Age-related osteoporosis without current pathological fracture; F72 Severe intellectual disabilities; Z79.899 Other long term (current) drug therapy

== ENCOUNTER 2022-03-13 10:27 | Observation (INO) | payer OTHER, MEDICARE ==
--- NOTE | 2022-03-07 13:18 | Anesthesia Consultation ---
Anesthesia Consult and Med Hx Date of service: 03/13/22 - Airway Anesthetic Teeth Evaluation: Edentulous Mallampati Class: Class III Intubation Access Assessment: Possibly Difficult (not fully cooperative with airway exam; per caregiver, no limitations to neck ROM; previous LMA 3.) - Pulmonary Exam CTA: Yes (would not take deep breath; otherwise normal breath sounds and resp effort) - Cardiac Exam Cardiac Exam: RRR - Pre-Operative Health Status ASA Pre-Surgery Classification: ASA3 Proposed Anesthetic Plan: MAC (GA if necessary) - Pulmonary Hx Smoking: No Hx Respiratory Symptoms: No (hx PE in 2019; off coumadin for several months) Home Oxygen Therapy: Yes (home O2 prn; not needed in many months) - Cardiovascular System Hx Hypertension: No Hx Heart Attack/AMI: No Hx Percutaneous Transluminal Coronary Angioplasty (PTCA): No Hx Cardia Arrhythmia: No Hx Pacemaker: No Hx Internal Defibrillator: No Hx Peripheral Vascular Disease: No (osteomyelitis of right hip) - Central Nervous System CVA: No Hx Psychiatric Problems: Yes (cognitive dysfunction) - Gastrointestinal Hx Gastroesophageal Reflux Disease: No (dysphagia s/p PEG tube) - Endocrine Hx Renal Disease: No Hx Liver Disease: No Hx Insulin Dependent Diabetes: No Hx Non-Insulin Dependent Diabetes: No Hx Hypothyroidism: Yes - Additional Comments Anesthesia Medical History Comments: Patient is nonverbal and not fully cooperative with exam.. Medical history is obtained from patient's caregiver. She expressed concerns regarding GA given patient's frailty and overall clinical condition. Patient has had surgery under GA in recent years without known anesthetic complications (reviewed anesthesia record from 2017 hip fracture repair at [facility]). She also states that the [facility] [place] and would not have anyone to stay with her overnight after surgery so would prefer patient be admitted for close observation.
[~2022-03-13 10:27] MED LIST: LACTATED RINGERS 1,000 ML IV SCH
[2022-03-13] MEDS ORDERED: ONDANSETRON 4 MG/2 ML INJ IV PRN ×2 (12:00→20:29)
[2022-03-13] MEDS ORDERED: HYDROmorphone 0.5 MG/0.5 ML INJ IV PRN ×2 (12:00→20:29)
--- NOTE | 2022-03-13 12:00 | Anesthesia Day of Surgery ---
Anesthesia Day of Surgery - Day of Surgery Patient Examined: Yes Patient H&P Reviewed: Yes Patient is NPO: Yes
[2022-03-13] MEDS ORDERED: propofoL 200 MG/20 ML VIAL IV ONE (12:02)
[2022-03-13] MEDS ORDERED: HYDROmorphone 1 MG/1 ML INJ ONE (12:02)
[2022-03-13] MEDS ORDERED: BUPIVACAINE/PF (0.5%) 5 MG/1 ML 30 ML VIAL INFILTRATI ONE ×2 (12:04→13:17)
[2022-03-13] MEDS ORDERED: ceFAZolin/STERILE WATER 2 GM/20 ML SYRINGE IV NR (12:20)
[2022-03-13 12:23] LABS: Hematocrit 34.4 % (30.3-42.9); Hemoglobin 10.9 gm/dl (10.1-14.3); Mean Corpuscular HGB Conc 32 % (30-34); Mean Corpuscular Volume 85 fl (79-97); Platelet Count 408 K/mm3 (140-440); Red Blood Count 4.04 M/mm3 (3.65-5.03); Red Cell Distribution Width 17.6 % (13.2-15.2)
[2022-03-13] MEDS ORDERED: ceFAZolin/Water 2 GM/20 ML 2 GM/20 ML SYRINGE IV ONE (12:24)
[2022-03-13] MEDS ORDERED: HEPARIN 5,000 UNIT/1 ML VIAL ONE (12:25)
[2022-03-13] MEDS: HEPARIN 5,000 UNIT/1 ML VIAL SUB-Q NR ×2 (12:30→22:42)
[2022-03-13 12:57] LABS: Blood Urea Nitrogen 20 mg/dL (7-17); Calcium 9.3 mg/dL (8.4-10.2); Hemolysis Index 18
[2022-03-13 13:06] LABS: BUN/Creatinine Ratio 50
[2022-03-13] MEDS ORDERED: ONDANSETRON 4 MG/2 ML INJ ONE (13:41)
--- NOTE | 2022-03-13 14:30 | Procedure Note ---
Date of procedure: 03/13/22 Pre-op diagnosis: Osteomyelitis, right hip Post-op diagnosis: same Procedure: Saucerization of right hip wound Description: Pt was placed supine on the OR table. General anesthesia by LMA was administered. Pt was repositioned with her right hip rotated upward. Right hip was prepped and draped. An elliptical incision was made about the right hip wound. Inverted skin, SQ tissue and fascia over the bone were excised. Deep cultures of the bone were obtained. A curette was used to remove devitalized and infected bone tissue. Hemostasis was obtained with the Bovie. Wound was irrigated with warm saline. The wound was packed with sterile fluffed 4 X 4's followed by an ABD and Medipore tape. Pt tolerated the procedure well and was taken to PACU in stable condition. Anesthesia: other (LMA) Surgeon: VINI CAMARGO Estimated blood loss: minimal Pathology: list (C&S of bone) Specimen disposition: to lab Condition: stable Disposition: PACU
--- NOTE | 2022-03-13 16:52 | Post Anesthesia Evaluation ---
- Post Anesthesia Evaluation Patient Participated: No Airway Patent: Yes Stable Respiratory Function: Yes Nausea/Vomiting: No Temp > 96.8F: Yes Pain Manageable: Yes Adequeate Hydration: Yes Anesthesia Complications: No Block Receding Appropriately: Not Applicable Patient on Ventilator: No
[2022-03-13] MEDS ORDERED: ACETAMINOPHEN 325 MG TAB PO PRN (20:29)
[2022-03-13] MEDS ORDERED: METOCLOPRAMIDE 10 MG/2 ML INJ IV PRN (20:29)
[2022-03-13] MEDS ORDERED: MORPHINE 2 MG/1 ML INJ IV PRN (20:29)
[2022-03-13] MEDS ORDERED: SODIUM CHLORIDE 0.9% 1000 ML 1,000 ML IV SCH (20:30)
[2022-03-13] MEDS ORDERED: FAMOTIDINE 20 MG/2 ML INJ IV SCH (22:00)
[2022-03-13] MEDS: HEPARIN 5,000 UNIT/1 ML VIAL SUB-Q SCH (22:43)
[2022-03-14 05:11] LABS: Basophils % (Auto) 0.2 % (0.0-1.8); Eosinophils % (Auto) 0.1 % (0.0-4.3); Hematocrit 24.6 % (30.3-42.9); Hemoglobin 7.6 gm/dl (10.1-14.3); Lymphocytes # (Auto) 2.5 K/mm3 (1.2-5.4); Lymphocytes % (Auto) 18.5 % (13.4-35.0); Mean Corpuscular HGB Conc 31 % (30-34); Mean Corpuscular Volume 85 fl (79-97); Monocytes # (Auto) 0.8 K/mm3 (0.0-0.8); Monocytes % (Auto) 5.7 % (0.0-7.3); Platelet Count 412 K/mm3 (140-440); Red Blood Count 2.89 M/mm3 (3.65-5.03); Red Cell Distribution Width 17.2 % (13.2-15.2)
[2022-03-14 05:35] LABS: Alanine Aminotransferase 17 units/L (7-56); Albumin 3.2 g/dL (3.9-5); Blood Urea Nitrogen 20 mg/dL (7-17); Calcium 8.6 mg/dL (8.4-10.2); Hemolysis Index 13
[2022-03-14 05:36] LABS: BUN/Creatinine Ratio 50
[2022-03-14] MEDS ORDERED: VANCOMYCIN PHARMACY TO DOSE IV SCH (07:00)
--- NOTE | 2022-03-14 07:19 | History and Physical Report ---
History of Present Illness Date of examination: 03/13/22 Date of admission: 03/13/22 20:29 Chief complaint: Right hip cellulitis followed by surgery History of present illness: Patient had saucerization of the right wound by Dr. Reese. Postop patient's family could not be reached to picker packer the patient hence patient being admitted for observation and disposition in the next 12 to 24 hours. Postop patient doing well. Past History Past Medical History: other (Right hip cellulitis) Past Surgical History: Other (Saucerization of right hip wound) Social history: lives with family, full code Family history: hypertension Medications and Allergies Allergies Allergy/AdvReac Type Severity Reaction Status Date / Time barium sulfate Allergy Unknown Verified 03/06/22 16:16 Sulfa (Sulfonamide Allergy Angioedema Verified 03/06/22 16:16 Antibiotics) Home Medications Medication Instructions Recorded Confirmed Last Taken Type Jevity 1.2 Adrian Liquid 1.5 bottle FEEDTUBE TID 07/21/17 03/07/22 Unknown History levoFLOXacin [Levaquin TAB] 500 mg PO QDAY #7 day 07/23/17 03/07/22 03/13/22 Rx Ascorbic Acid [Vitamin C] 500 mg PO QDAY 03/07/22 03/07/22 Unknown History Doxycycline Monohydrate 100 mg PO BID 03/07/22 03/07/22 03/13/22 History Zinc Gluconate [Zinc Gluconate 30 mg PO QDAY 03/07/22 03/07/22 Unknown History 30mg TAB] polyethylene glycoL 3350 [Miralax 17 gm PO QDAY 03/07/22 03/07/22 Unknown History 3350] Active Meds: Active Medications Acetaminophen (Acetaminophen 325 Mg Tab) 650 mg PO Q4H PRN PRN Reason: Pain MILD(1-3)/Fever >100.5/CONTRERAS Famotidine (Famotidine 20 Mg/2 Ml Inj) 20 mg IV BID [facility] Last Admin: 03/13/22 22:43 Dose: 20 mg Heparin Sodium (Porcine) (Heparin 5,000 Unit/1 Ml Vial) 5,000 unit SUB-Q Q12HR GWENDOLYN Last Admin: 03/13/22 22:43 Dose: 5,000 unit Hydromorphone HCl (Hydromorphone 0.5 Mg/0.5 Ml Inj) 0.25 mg IV Q10MIN PRN PRN Reason: Pain, Moderate (4-6) Hydromorphone HCl (Hydromorphone 0.5 Mg/0.5 Ml Inj) 0.5 mg IV Q3H PRN PRN Reason: Pain , Severe (7-10) Sodium Chloride (Nacl 0.9% 1000 Ml) 1,000 mls @ 42 mls/hr IV DIRECT GWENDOLYN Last Admin: 03/13/22 22:44 Dose: 42 mls/hr Ampicillin Sodium/Sulbactam Sodium (Unasyn/Ns 3 Gm/100 Ml) 3 gm in 100 mls @ 100 mls/hr IV Q6HR GWENDOLYN; Protocol Vancomycin HCl (Vancomycin/Ns 500 Mg/100 Ml) 500 mg in 100 mls @ 100 mls/hr IV ONCE ONE Stop: 03/14/22 08:59 Metoclopramide HCl (Metoclopramide 10 Mg/2 Ml Inj) 10 mg IV Q6H PRN PRN Reason: Nausea And Vomiting Morphine Sulfate (Morphine 2 Mg/1 Ml Inj) 2 mg IV Q4H PRN PRN Reason: Pain, Moderate (4-6) Ondansetron HCl (Ondansetron 4 Mg/2 Ml Inj) 4 mg IV ONCE PRN PRN Reason: Nausea And Vomiting Ondansetron HCl (Ondansetron 4 Mg/2 Ml Inj) 4 mg IV Q8H PRN PRN Reason: Nausea And Vomiting Sodium Chloride (Sodium Chloride 0.9% 10 Ml Flush Syringe) 10 ml IV BID [facility] Last Admin: 03/13/22 22:43 Dose: 10 ml Sodium Chloride (Sodium Chloride 0.9% 10 Ml Flush Syringe) 10 ml IV PRN PRN PRN Reason: LINE FLUSH Review of Systems All systems: negative Exam - Constitutional Vitals: Temp Pulse Resp BP Pulse Ox 98 F 68 18 95/57 96 03/13/22 14:45 03/13/22 20:00 03/14/22 01:14 03/13/22 20:00 03/14/22 01:14 General appearance: Present: no acute distress, well-nourished - EENT Eyes: Present: PERRL ENT: hearing intact, clear oral mucosa - Neck Neck: Present: supple, normal ROM - Respiratory Respiratory effort: normal Respiratory: bilateral: CTA - Cardiovascular Heart rate: 78 Rhythm: regular Heart Sounds: Present: S1 & S2. Absent: rub, click - Extremities Extremities: no ischemia, pulses intact, pulses symmetrical, No edema Peripheral Pulses: within normal limits - Abdominal General gastrointestinal: Present: soft, non-tender, non-distended, normal bowel sounds Female genitourinary: Present: normal - Integumentary Integumentary: Present: clear, warm, dry - Musculoskeletal Musculoskeletal: gait normal, strength equal bilaterally - Psychiatric Psychiatric: appropriate mood/affect, intact judgment & insight - Neurologic Neurologic: CNII-XII intact, moves all extremities - Allied Health Allied health notes reviewed: nursing, case management Results - Labs CBC & Chem 7: 03/13/22 Unknown 03/14/22 05:00 Labs: Laboratory Last Values WBC 13.3 K/mm3 (4.5-11.0) H 03/13/22 Unknown RBC 2.89 M/mm3 (3.65-5.03) L 03/13/22 Unknown Hgb 7.6 gm/dl (10.1-14.3) L 03/13/22 Unknown Hct 24.6 % (30.3-42.9) L 03/13/22 Unknown MCV 85 fl (79-97) 03/13/22 Unknown MCH 26 pg (28-32) L 03/13/22 Unknown MCHC 31 % (30-34) 03/13/22 Unknown RDW 17.2 % (13.2-15.2) H 03/13/22 Unknown Plt Count 412 K/mm3 (140-440) 03/13/22 Unknown Lymph % (Auto) 18.5 % (13.4-35.0) 03/13/22 Unknown Dale % (Auto) 5.7 % (0.0-7.3) 03/13/22 Unknown Eos % (Auto) 0.1 % (0.0-4.3) 03/13/22 Unknown Baso % (Auto) 0.2 % (0.0-1.8) 03/13/22 Unknown Lymph # (Auto) 2.5 K/mm3 (1.2-5.4) 03/13/22 Unknown Dale # (Auto) 0.8 K/mm3 (0.0-0.8) 03/13/22 Unknown Eos # (Auto) 0.0 K/mm3 (0.0-0.4) 03/13/22 Unknown Baso # (Auto) 0.0 K/mm3 (0.0-0.1) 03/13/22 Unknown Seg Neutrophils % 75.5 % (40.0-70.0) H 03/13/22 Unknown Seg Neutrophils # 10.0 K/mm3 (1.8-7.7) H 03/13/22 Unknown Sodium 141 mmol/L (137-145) 03/14/22 05:00 Potassium 4.1 mmol/L (3.6-5.0) 03/14/22 05:00 Chloride 106.5 mmol/L (98-107) 03/14/22 05:00 Carbon Dioxide 20 mmol/L (22-30) L 03/14/22 05:00 Anion Gap 19 mmol/L 03/14/22 05:00 BUN 20 mg/dL (7-17) H 03/14/22 05:00 Creatinine 0.4 mg/dL (0.6-1.2) L 03/14/22 05:00 Estimated GFR > 60 ml/min 03/14/22 05:00 BUN/Creatinine Ratio 50 % 03/14/22 05:00 Glucose 91 mg/dL (65-100) 03/14/22 05:00 Calcium 8.6 mg/dL (8.4-10.2) 03/14/22 05:00 Total Bilirubin 0.40 mg/dL (0.1-1.2) 03/14/22 05:00 AST 34 units/L (5-40) 03/14/22 05:00 ALT 17 units/L (7-56) 03/14/22 05:00 Alkaline Phosphatase 109 units/L (35-129) 03/14/22 05:00 Total Protein 6.6 g/dL (6.3-8.2) 03/14/22 05:00 Albumin 3.2 g/dL (3.9-5) L 03/14/22 05:00 Albumin/Globulin Ratio 0.9 % 03/14/22 05:00 SARS-CoV-2 (PCR) Negative (Negative) 03/07/22 11:10 Farrell/IV: Voiding Method Diaper Assessment and Plan Advance Directives: Yes (Full code) VTE prophylaxis?: Chemical Plan of care discussed with patient/family: Yes - Patient Problems (1) Cellulitis of right hip Current Visit: Yes Status: Acute Plan to address problem: IV Unasyn and vancomycin [address] Reese consulted (2) Anemia Current Visit: Yes Status: Chronic Qualifiers: Anemia type: unspecified type Qualified Code(s): D64.9 - Anemia, unspecif ied Plan to address problem: Anemia work-up (3) Malnutrition Current Visit: Yes Status: Chronic Qualifiers: Protein-calorie malnutrition severity: moderate Plan to address problem: Dietary supplements requested (4) DVT prophylaxis Current Visit: Yes Status: Acute Plan to address problem: On heparin and GI prophylaxis (5) Discharge planning issues Current Visit: Yes Status: Acute Plan to address problem: Patient to be discharged in a.m. Case management informed Patient evaluated
[2022-03-14] MEDS: AMPICILLIN/SULBACTA 3GM/100ML 3 GM/100 ML BAG IV SCH ×2 (07:39→12:00)
[2022-03-14] MEDS ORDERED: JEVITY CAL FEEDTUBE SCH (08:00)
[2022-03-14] MEDS ORDERED: VANCOMYCIN/NS 500 MG/100 ML 500 MG/100 ML BAG IV ONE (08:00)
[2022-03-14] MEDS ORDERED: ASCORBIC ACID 500 MG TAB PO SCH (10:00)
[2022-03-14] MEDS: HEPARIN 5,000 UNIT/1 ML VIAL SUB-Q SCH ×2 (10:00→21:08)
[2022-03-14] MEDS ORDERED: ZINC SULFATE 220 MG CAP PO SCH (10:00)
[2022-03-14] MEDS ORDERED: ZINC GLUCONATE 30 MG PO SCH (10:00)
[2022-03-14] MEDS ORDERED: METOCLOPRAMIDE 10 MG/2 ML INJ IV PRN (13:00)
[2022-03-14] MEDS ORDERED: LIPASE 10,500/PROTEASE 25,000/AMYLASE 43,750 (UNITS) DR CAP FEEDTUBE PRN (14:09)
[2022-03-14] MEDS ORDERED: SIMPLE SYRUP 15 ML FEEDTUBE PRN ×2 (14:09)
[2022-03-14] MEDS ORDERED: SODIUM BICARBONATE 325 MG TAB FEEDTUBE PRN (14:09)
--- NOTE | 2022-03-14 15:24 | Discharge Summary ---
Providers - Providers Date of Admission: 03/13/22 20:29 Date of discharge: 03/14/22 Attending physician: BJORN HEATH 03/13/22 20:29 Consult to Physician [CONS] Routine Comment: Consulting Provider: VINI REESE Physician Instructions: Reason For Exam: R hip cellulitis 03/14/22 09:32 Physical Therapy Evaluation and Treat [CONS] Stat Comment: Eval and Treat Reason For Exam: Physical Therapy 03/14/22 09:33 Occupational Therapy Evaluate and Treat [CONS] Stat Comment: Eval and Treat Reason For Exam: Occupational Therapy 03/14/22 11:33 Consult to Dietitian/Nutrition [CONS] Routine Physician Instructions: may start jevity per intermediate Reason For Exam: Reason for Consult: Write/Manage Tube Feeding Primary care physician: EZEQUIEL GOMEZ Hospitalization Reason for admission: Right hip cellulitis s/p debridement Procedures: Debridement of right hip ulcer Hospital course: Patient with osteomyelitis of the right hip evaluated by surgeon Dr. Reese patient underwent saucerization, Surgeon cleared for discharge however due to social reasons patient could not leave hospital service admitted the patient, Managed appropriately, patient received IV antibiotics. I discussed the case with the surgeon Dr. Reese, he reports that patient has all the antibiotics and follow-up with primary care physician and private ID And cleared for discharge today. Discharge diagnosis; --Osteomyelitis right hip -- S/p saucerization by general surgeon -- cellulitis of right hip -- Anemia -- Moderate malnutrition --DVT prophylaxis Hemodynamically stable at discharge Disposition: 01 HOME / SELF CARE / HOMELESS Final Discharge Diagnosis (Prints w/discharge instructions): Osteomyelitis right hip. s/p saucerization. Cellulitis right hip. Anemia. Moderate malnutrition. Dysphagia/PEG tube in place Time spent for discharge: 35 min Core Measure Documentation - Palliative Care Palliative Care/ Comfort Measures: Not Applicable - Core Measures Any of the following diagnoses?: none Exam - Constitutional Vitals: Temp Pulse Resp BP Pulse Ox 96.1 F L 77 16 114/55 96 03/14/22 12:20 03/14/22 12:20 03/14/22 12:20 03/14/22 12:20 03/14/22 12:20 General appearance: Present: mild distress, cachectic, disheveled, other (Confused) - EENT Eyes: Present: PERRL, EOM intact - Neck Neck: Present: supple, normal ROM - Respiratory Respiratory effort: normal Respiratory: bilateral: diminished, negative: rales, rhonchi, wheezing - Cardiovascular Rhythm: regular Heart Sounds: Present: S1 & S2 - Extremities Extremities: no ischemia, abnormal (Contracted) - Abdominal General gastrointestinal: Present: soft, non-tender, non-distended, other (PEG tube in place) - Integumentary Integumentary: Present: clear, warm - Musculoskeletal Musculoskeletal: generalized weakness - Psychiatric Psychiatric: other (Confused) - Neurologic Neurologic: other Plan Activity: advance as tolerated, fall precautions Diet: other (Tube feeding per protocol) Additional Instructions: Advised to continue home antibiotics and other medications as before. Fall precautions, aspiration precautions. Continue tube feeding per protocol. Follow private MD, ID and surgeon per schedule Follow up with: EZEQUIEL GOMEZ MD [Primary Care Provider] - 7 Days VINI REESE MD [Staff Physician] - 7 Days Forms: Outpatient Surgery DC Inst.
[2022-03-14] MEDS ORDERED: AMPICILLIN/SULBACTA 1.5GM/50ML 1.5 GM/50 ML BAG IV SCH (18:00)
[2022-03-14 18:26] VITALS: BP 92/53
[2022-03-14] MEDS ORDERED: FAMOTIDINE 10 MG TAB FEEDTUBE SCH (22:00)
[2022-03-15] MEDS ORDERED: ASCORBIC ACID 500 MG TAB FEEDTUBE SCH (10:00)
[2022-03-15] MEDS ORDERED: VANCOMYCIN 500 MG in SODIUM CHLORIDE 0.9% 100 ML IV SCH (10:00)
== END 2022-03-14 21:30 | disposition home or self-care (01) ==
LOC: OR 10:27 → 3A 20:29
PROVIDERS: ADMIT Internal Medicine; ATTEND Internal Medicine
DX: M86.151 Other acute osteomyelitis, right femur (principal); Z20.822 Contact with and (suspected) exposure to COVID-19; L03.115 Cellulitis of right lower limb; D64.9 Anemia, unspecified; E44.0 Moderate protein-calorie malnutrition; Z79.899 Other long term (current) drug therapy; Z98.890 Other specified postprocedural states; Z68.1 Body mass index [BMI] 19.9 or less, adult
CPT/HCPCS: 11043; 36415; 80048; 80053; 85025; 85027; 87075; 87116; 96365; 96366; 96367; 96372; 96375; 97161; 97165; G0378; G0379; J0295; J0690; J1170; J1644; J2405; J2704; J3370; J3490; J7030; J7120; U0003

== ENCOUNTER 2022-03-20 08:35 | Outpatient (CLI) | payer OTHER, MEDICARE ==
[2022-03-20] MEDS ORDERED: LIDOCAINE (4%) 40 MG/ML TOPICAL SOLN 50 ML BOTTLE TP SCH (09:30)
[2022-03-20] MEDS ORDERED: SODIUM HYPOCHLORITE, DAKIN'S FULL STRENGTH (0.5%) 473 ML TOPICAL SOLN TP SCH (10:30)
== END 2022-03-20 08:36 | disposition home or self-care (01) ==
LOC: WOUND 08:35
PROVIDERS: ATTEND Surgery
DX: L89.214 Pressure ulcer of right hip, stage 4 (principal); L97.114 Non-pressure chronic ulcer of right thigh with necrosis of bone; H26.8 Other specified cataract; R13.10 Dysphagia, unspecified; M86.651 Other chronic osteomyelitis, right thigh; M81.0 Age-related osteoporosis without current pathological fracture; F72 Severe intellectual disabilities; Z79.899 Other long term (current) drug therapy

== ENCOUNTER 2022-03-25 10:04 | Outpatient (CLI) | payer OTHER, MEDICARE ==
[2022-03-25] MEDS ORDERED: SODIUM HYPOCHLORITE, DAKIN'S 1/2 STRENGTH (0.25%) 473 ML TOPICAL SOLN TP ONE (11:24)
[2022-03-25] MEDS ORDERED: LIDOCAINE (4%) 40 MG/ML TOPICAL SOLN 50 ML BOTTLE TP ONE (11:24)
[2022-03-25] MEDS ORDERED: SODIUM HYPOCHLORITE, DAKIN'S FULL STRENGTH (0.5%) 473 ML TOPICAL SOLN TP ONE (13:03)
== END 2022-03-25 10:05 | disposition home or self-care (01) ==
LOC: WOUND 10:04
PROVIDERS: ATTEND Surgery
DX: L89.214 Pressure ulcer of right hip, stage 4 (principal); L97.114 Non-pressure chronic ulcer of right thigh with necrosis of bone; H26.8 Other specified cataract; R13.10 Dysphagia, unspecified; M86.651 Other chronic osteomyelitis, right thigh; M81.0 Age-related osteoporosis without current pathological fracture; F72 Severe intellectual disabilities; Z79.899 Other long term (current) drug therapy

== ENCOUNTER 2022-04-03 14:15 | Emergency (ER) | payer MEDICARE ==
--- NOTE | 2022-04-03 16:59 | XRay Report ---
CHEST 1 VIEW 04/03/2022 4:37 PM INDICATION / CLINICAL INFORMATION: syncope. COMPARISON: 01/11/2019 FINDINGS: SUPPORT DEVICES: None. HEART / MEDIASTINUM: No significant abnormality. LUNGS / PLEURA: No significant pulmonary or pleural abnormality. No pneumothorax. ADDITIONAL FINDINGS: There is marked gaseous distention of bowel within the included upper abdomen. T his is similar to the remote prior. IMPRESSION: 1. No acute findings in the chest. 2. Diffuse gaseous distention of the included bowel in the upper abdomen. Signer Name: Rudy Lucia MD Signed: 04/03/2022 4:54 PM Workstation Name: [email or web address]
--- NOTE | 2022-04-03 17:17 | Cat Scan Report ---
CT head/brain wo con INDICATION / CLINICAL INFORMATION: 71 years Female; syncope. TECHNIQUE: Routine CT head without contrast. All CT scans at this location are performed using CT dos e reduction for ALARA by means of automated exposure control. COMPARISON: 08/03/2019 FINDINGS: BRAIN / INTRACRANIAL CONTENTS: No acute hemorrhage, mass effect, midline shift, hydrocephalus, or acu te, large territorial infarct. Mild, diffuse cerebral and cerebellar atrophy. Mild to moderate, right greater than left, degree of h ippocampal atrophy suggested bilaterally. There are mild areas of decreased attenuation in the white matter of the cerebral hemispheres. These are nonspecific findings and may be related to microangiopathy (hypertension, diabetes, atheroscleros is), given the patient's age. It might be difficult to evaluate for small areas of ischemia without d iffusion imaging by MRI. CRANIOCERVICAL JUNCTION: No significant abnormality. ORBITS: No significant abnormality of visualized orbits. SINUSES / MASTOIDS: Mild to moderate mucosal thickening in the mastoids. ADDITIONAL FINDINGS: Mild subcutaneous soft tissue swelling seen in the right frontal region. No sign s of underlying calvarial fracture. Atherosclerotic disease is seen in the anterior and posterior circulation. IMPRESSION: 1. No focal mass, intracranial hemorrhage, hydrocephalus, or acute, large territorial infarct. Signer Name: Good Ramos MD, III Signed: 04/03/2022 5:12 PM Workstation Name: [employer]
--- NOTE | 2022-04-03 17:26 | Emergency Department Report ---
ED General Adult HPI - General Chief complaint: Syncope Stated complaint: SYNCOPE Time Seen by Provider: 04/03/22 15:52 Source: EMS Mode of arrival: Stretcher Limitations: Physical Limitation - History of Present Illness Initial comments: Patient presents to the emergency department from a local wound care facility for syncopal episode. Patient is nonverbal does not able to add to the history. Per reports the patient was receiving wound care when she passed out. Time of unresponsiveness is unknown. Patient is up and interacting with her surround ings on my examination. -: Gradual Consistency: now resolved Improves with: none Worsens with: none Associated Symptoms: denies other symptoms Treatments Prior to Arrival: none - Related Data Home Medications Medication Instructions Recorded Confirmed Last Taken Jevity 1.2 Adrian Liquid 1.5 bottle FEEDTUBE TID 07/21/17 03/07/22 Unknown Ascorbic Acid [Vitamin C] 500 mg PO QDAY 03/07/22 03/07/22 Unknown Doxycycline Monohydrate 100 mg PO BID 03/07/22 03/07/22 03/13/22 Zinc Gluconate [Zinc Gluconate 30 mg PO QDAY 03/07/22 03/07/22 Unknown 30mg TAB] polyethylene glycoL 3350 [Miralax 17 gm PO QDAY 03/07/22 03/07/22 Unknown 3350] Previous Rx's Medication Instructions Recorded Last Taken Type levoFLOXacin [Levaquin TAB] 500 mg PO QDAY #7 day 07/23/17 03/13/22 Rx Allergies Allergy/AdvReac Type Severity Reaction Status Date / Time barium sulfate Allergy Unknown Verified 04/03/22 14:28 Sulfa (Sulfonamide Allergy Angioedema Verified 04/03/22 14:28 Antibiotics) ED Review of Systems ROS: Stated complaint: SYNCOPE Other details as noted in HPI Comment: non verbal ED Past Medical Hx - Past Medical History Hx Hypertension: No Hx Heart Attack/AMI: No Hx Liver Disease: No Hx Renal Disease: No Hx Dementia: Yes Hx HIV: No Additional medical history: MR, osteoporosis, Intellectual disability, Non- verbal - Surgical History Hx Pacemaker: No Hx Internal Defibrillator: No Additional Surgical History: G TUBE - Social History Smoking Status: Never Smoker - Medications Home Medications: Home Medications Medication Instructions Recorded Confirmed Last Taken Type Jevity 1.2 Adrian Liquid 1.5 bottle FEEDTUBE TID 07/21/17 03/07/22 Unknown History levoFLOXacin [Levaquin TAB] 500 mg PO QDAY #7 day 07/23/17 03/07/22 03/13/22 Rx Ascorbic Acid [Vitamin C] 500 mg PO QDAY 03/07/22 03/07/22 Unknown History Doxycycline Monohydrate 100 mg PO BID 03/07/22 03/07/22 03/13/22 History Zinc Gluconate [Zinc Gluconate 30 mg PO QDAY 03/07/22 03/07/22 Unknown History 30mg TAB] polyethylene glycoL 3350 [Miralax 17 gm PO QDAY 03/07/22 03/07/22 Unknown Histor y 3350] ED Physical Exam - General Limitations: Physical Limitation General appearance: alert, in no apparent distress - Head Head exam: Present: atraumatic, normocephalic - Eye Eye exam: Present: normal appearance, PERRL - ENT ENT exam: Present: mucous membranes moist - Neck Neck exam: Present: normal inspection - Respiratory Respiratory exam: Present: normal lung sounds bilaterally. Absent: respiratory distress - Cardiovascular Cardiovascular Exam: Present: regular rate, normal rhythm - GI/Abdominal GI/Abdominal exam: Present: soft, normal bowel sounds, other (Feeding tube present). Absent: distended, tenderness - Extremities Exam Extremities exam: Present: other (Addressed decubitus ulcer of the right hip) - Back Exam Back exam: Present: normal inspection. Absent: CVA tenderness (L) - Neurological Exam Neurological exam: Present: alert, other (Not able to assess due to the patient's baseline condition) - Skin Skin exam: Present: warm, dry. Absent: intact ED Course Vital Signs 04/03/22 04/03/22 04/03/22 14:24 15:16 15:30 Temperature 97.4 F L Pulse Rate 60 76 Respiratory 18 23 11 L Rate Blood Pressure 126/59 Blood Pressure 90/60 [Left] O2 Sat by Pulse 100 100 99 Oximetry 04/03/22 04/03/22 04/03/22 15:45 16:00 16:16 Temperature Pulse Rate 78 70 68 Respiratory 13 17 13 Rate Blood Pressure 93/55 93/55 93/55 Blood Pressure [Left] O2 Sat by Pulse 94 100 89 Oximetry 04/03/22 04/03/22 04/03/22 16:30 16:46 17:00 Temperature Pulse Rate 69 67 75 Respiratory 16 11 L 17 Rate Blood Pressure 93/55 93/55 93/55 Blood Pressure [Left] O2 Sat by Pulse 97 91 Oximetry 04/03/22 04/03/22 04/03/22 17:16 17:30 17:46 Temperature Pulse Rate 74 67 63 Respiratory 10 L 15 20 Rate Blood Pressure 93/55 93/55 93/55 Blood Pressure [Left] O2 Sat by Pulse 77 L 87 90 Oximetry 04/03/22 18:00 Temperature Pulse Rate 66 Respiratory 12 Rate Blood Pressure 93/55 Blood Pressure [Left] O2 Sat by Pulse 80 L Oximetry ED Medical Decision Making - Lab Data Result diagrams: 04/03/22 17:00 04/03/22 17:00 Lab Results 04/03/22 04/03/22 Range/Units 17:00 17:00 WBC 5.7 (4.5-11.0) K/mm3 RBC 2.91 L (3.65-5.03) M/mm3 Hgb 7.9 L (10.1-14.3) gm/dl Hct 25.3 L (30.3-42.9) % MCV 87 (79-97) fl MCH 27 L (28-32) pg MCHC 31 (30-34) % RDW 18.3 H (13.2-15.2) % Plt Count 540 H (140-440) K/mm3 Lymph % (Auto) 17.7 (13.4-35.0) % Ogle % (Auto) 9.1 H (0.0-7.3) % Eos % (Auto) 0.1 (0.0-4.3) % Baso % (Auto) 0.3 (0.0-1.8) % Lymph # (Auto) 1.0 L (1.2-5.4) K/mm3 Ogle # (Auto) 0.5 (0.0-0.8) K/mm3 Eos # (Auto) 0.0 (0.0-0.4) K/mm3 Baso # (Auto) 0.0 (0.0-0.1) K/mm3 Seg Neutrophils % 72.8 H (40.0-70.0) % Seg Neutrophils # 4.2 (1.8-7.7) K/mm3 Sodium 140 (137-145) mmol/L Potassium 4.7 (3.6-5.0) mmol/L Chloride 105.7 (98-107) mmol/L Carbon Dioxide 23 (22-30) mmol/L Anion Gap 16 mmol/L BUN 21 H (7-17) mg/dL Creatinine 0.4 L (0.6-1.2) mg/dL Estimated GFR > 60 ml/min BUN/Creatinine Ratio 53 % Glucose 79 (65-100) mg/dL Calcium 8.9 (8.4-10.2) mg/dL Total Bilirubin 0.20 (0.1-1.2) mg/dL AST 74 H (5-40) units/L ALT 57 H (7-56) units/L Alkaline Phosphatase 154 H (35-129) units/L Total Protein 6.4 (6.3-8.2) g/dL Albumin 3.7 L (3.9-5) g/dL Albumin/Globulin Ratio 1.4 % - EKG Data -: EKG Interpreted by Me EKG shows normal: sinus rhythm Rate: normal - EKG Data Interpretation: other (QT 405/ QTC 505) - Radiology Data Radiology results: report reviewed - Medical Decision Making Results reviewed Critical care attestation.: If time is entered above; I have spent that time in minutes in the direct care of this critically ill patient, excluding procedure time. ED Disposition Clinical Impression: Vasovagal episode Disposition: 01 HOME / SELF CARE / HOMELESS Is pt being admited?: No Does the pt Need Aspirin: No Condition: Stable Instructions: Syncope (ED), Syncope Additional Instructions: Return if worse Referrals: PRIMARY CARE, [Primary Care Provider] - 3-5 Days BEULAH CUEVAS MD [Staff Physician] - 3-5 Days Time of Disposition: 20:56
[2022-04-03 17:32] LABS: Basophils % (Auto) 0.3 % (0.0-1.8); Eosinophils % (Auto) 0.1 % (0.0-4.3); Hematocrit 25.3 % (30.3-42.9); Hemoglobin 7.9 gm/dl (10.1-14.3); Lymphocytes % (Auto) 17.7 % (13.4-35.0); Mean Corpuscular HGB Conc 31 % (30-34); Mean Corpuscular Volume 87 fl (79-97); Monocytes # (Auto) 0.5 K/mm3 (0.0-0.8); Monocytes % (Auto) 9.1 % (0.0-7.3); Platelet Count 540 K/mm3 (140-440); Red Blood Count 2.91 M/mm3 (3.65-5.03); Red Cell Distribution Width 18.3 % (13.2-15.2)
[2022-04-03 17:49] LABS: Alanine Aminotransferase 57 units/L (7-56); Albumin 3.7 g/dL (3.9-5); Blood Urea Nitrogen 21 mg/dL (7-17); Calcium 8.9 mg/dL (8.4-10.2); Hemolysis Index 63
[2022-04-03 18:15] LABS: BUN/Creatinine Ratio 53
--- NOTE | 2022-04-03 20:58 | Event Note ---
Date: 04/03/22 Please disregard EKG reading on initial dictation. The patient's heart rate is 65 bpm QT is 418 QTC is 434 normal EKG
[2022-04-04 10:01] VITALS: BP 105/62
--- NOTE | 2022-04-04 18:37 | Electrocardiograph Report ---
[facility] Test Date: 2022-04-03 Test Time: 17:11:52 Pat Name: CHANDA EDWARDS Department: Room: Gender: F Wildlife Technician: GP : 1950 Requested By: BEKAH HIDALGO Order Number: [id number] Reading MD: Newton Marroquin Measurements Intervals [place] Rate: 65 P: 85 W[place]: 169 QRS: 29 QRSD: 76 T: 9 QT: 418 QTc: 434 Interpretive Statements Sinus rhythm No previous ECG available for comparison Electronically Signed On 04-04-2022 18:36:56 EDT by Newton Marroquin
== END 2022-04-04 09:58 | disposition home or self-care (01) ==
LOC: ED 14:15
DX: R55 Syncope and collapse (principal); Z88.2 Allergy status to sulfonamides
CPT/HCPCS: 36415; 70450; 71045; 80053; 82962; 85025; 93005; 99284

== ENCOUNTER 2022-04-10 10:07 | Outpatient (CLI) | payer MEDICARE ==
[2022-04-10] MEDS ORDERED: LIDOCAINE (4%) 40 MG/ML TOPICAL SOLN 50 ML BOTTLE TP ONE (10:15)
[2022-04-10] MEDS ORDERED: SODIUM HYPOCHLORITE, DAKIN'S FULL STRENGTH (0.5%) 473 ML TOPICAL SOLN TP ONE (10:18)
== END 2022-04-10 10:08 | disposition home or self-care (01) ==
LOC: WOUND 10:07
PROVIDERS: ATTEND Surgery
DX: L89.214 Pressure ulcer of right hip, stage 4 (principal); L97.114 Non-pressure chronic ulcer of right thigh with necrosis of bone; H26.8 Other specified cataract; R13.10 Dysphagia, unspecified; M86.651 Other chronic osteomyelitis, right thigh; M81.0 Age-related osteoporosis without current pathological fracture; F72 Severe intellectual disabilities; Z79.899 Other long term (current) drug therapy

== ENCOUNTER 2022-04-24 10:14 | Outpatient (CLI) | payer MEDICARE ==
[2022-04-24] MEDS ORDERED: LIDOCAINE (4%) 40 MG/ML TOPICAL SOLN 50 ML BOTTLE TP ONE (11:04)
== END 2022-04-24 10:15 | disposition home or self-care (01) ==
LOC: WOUND 10:14
PROVIDERS: ATTEND Surgery
DX: L89.214 Pressure ulcer of right hip, stage 4 (principal); L97.114 Non-pressure chronic ulcer of right thigh with necrosis of bone; H26.8 Other specified cataract; R13.10 Dysphagia, unspecified; M86.651 Other chronic osteomyelitis, right thigh; M81.0 Age-related osteoporosis without current pathological fracture; F72 Severe intellectual disabilities; Z79.899 Other long term (current) drug therapy

== ENCOUNTER 2022-05-15 09:05 | Outpatient (CLI) | payer MEDICARE ==
[2022-05-15] MEDS ORDERED: LIDOCAINE (4%) 40 MG/ML TOPICAL SOLN 50 ML BOTTLE TP ONE (09:15)
== END 2022-05-15 09:06 | disposition home or self-care (01) ==
LOC: WOUND 09:05
PROVIDERS: ATTEND Surgery
DX: L89.214 Pressure ulcer of right hip, stage 4 (principal); L97.114 Non-pressure chronic ulcer of right thigh with necrosis of bone; H26.8 Other specified cataract; R13.10 Dysphagia, unspecified; M86.651 Other chronic osteomyelitis, right thigh; M81.0 Age-related osteoporosis without current pathological fracture; F72 Severe intellectual disabilities; H25.89 Other age-related cataract; Z79.899 Other long term (current) drug therapy

== ENCOUNTER 2022-05-29 09:46 | Outpatient (CLI) | payer MEDICARE ==
[2022-05-29] MEDS ORDERED: LIDOCAINE (4%) 40 MG/ML TOPICAL SOLN 50 ML BOTTLE TP ONE (09:52)
== END 2022-05-29 09:47 | disposition home or self-care (01) ==
LOC: WOUND 09:46
PROVIDERS: ATTEND Surgery
DX: L89.214 Pressure ulcer of right hip, stage 4 (principal); L97.114 Non-pressure chronic ulcer of right thigh with necrosis of bone; H26.8 Other specified cataract; R13.10 Dysphagia, unspecified; M86.651 Other chronic osteomyelitis, right thigh; M81.0 Age-related osteoporosis without current pathological fracture; F72 Severe intellectual disabilities; H25.89 Other age-related cataract; Z79.899 Other long term (current) drug therapy